=== PATIENT | male | born 1960 | race Caucasian/White ===

== ENCOUNTER 2018-06-20 13:40 | Emergency (ER) | payer OTHER ==
[2018-06-20] MEDS ORDERED: Ketorolac Tromethamine 30 MG/ML VIAL ONE (13:53)
[2018-06-20] MEDS ORDERED: Lidocaine 1% MPF 2 ML VIAL ONE (14:06)
--- NOTE | 2018-06-20 15:11 | RAD ---
RIGHT LITTLE FINGER: Date: 06/20/18 HISTORY: Injury playing basketball. FINDINGS: There is a dislocation at the PIP joint. There is what appears to be a small avulsion fracture seen a long the volar aspect of the proximal phalanx associated with this. IMPRESSION: Dislocation of the PIP joint with a small bony avulsion fracture. POS: [facility]
--- NOTE | 2018-06-20 15:12 | RAD ---
RIGHT LITTLE FINGER: Date: 06/20/18 HISTORY: Post reduction. FINDINGS: Dislocation of the PIP joint has been reduced. A small chip fracture along the volar aspect of the ba se of the middle phalanx is seen. IMPRESSION: Satisfactory reduction of dislocation of small avulsive injury along the volar side of the base of th e middle phalanx. POS: [facility]
== END 2018-06-20 14:41 | disposition home or self-care (01) ==
LOC: SCSER 13:40
DX: S62.616A Displaced fracture of proximal phalanx of right little finger, initial encounter for closed fracture (principal); W23.0XXA Caught, crushed, jammed, or pinched between moving objects, initial encounter; Y93.67 Activity, basketball
CPT/HCPCS: 26770; 96372; J1885; J2001

== ENCOUNTER 2018-08-29 19:39 | Emergency (ER) | payer OTHER | END 2018-08-29 20:23 | disposition home or self-care (01) | LOC: SCSER 19:39 | DX: S01.81XA Laceration without foreign body of other part of head, initial encounter (principal); Z79.899 Other long term (current) drug therapy; W21.05XA Struck by basketball, initial encounter; Y99.8 Other external cause status ==

== ENCOUNTER 2018-08-29 22:20 | Emergency (ER) | payer OTHER ==
[2018-08-29] MEDS ORDERED: Lidocaine 1% PF 5 ML VIAL ONE (22:22)
[2018-08-29] MEDS ORDERED: Bacitracin Zinc 1 Packet ONE ×2 (22:23→22:44)
== END 2018-08-29 22:54 | disposition home or self-care (01) ==
LOC: SCSER 22:20
DX: S01.81XA Laceration without foreign body of other part of head, initial encounter (principal); W51.XXXA Accidental striking against or bumped into by another person, initial encounter; Y93.67 Activity, basketball
CPT/HCPCS: 12013; J2001

== ENCOUNTER 2018-09-05 17:30 | Emergency (ER) | payer OTHER | END 2018-09-05 17:48 | disposition home or self-care (01) | LOC: SCSER 17:30 | DX: S01.81XD Laceration without foreign body of other part of head, subsequent encounter (principal) ==